=== PATIENT | male | born 2000 | race Caucasian/White ===

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

== ENCOUNTER 2023-05-10 13:42 | Emergency (ER) | payer SELFPAY ==
[~2023-05-10] VITALS: Ht 180.3 cm; Wt 74.7 kg
[2023-05-10 13:42] VITALS: TEMP 98.3
[~2023-05-10 13:42] MED LIST: APAP500T10 PO; AUGM875T28 PO
[2023-05-10] MEDS ORDERED: IBUPROFEN 600MG TAB PO ONE (16:30)
[2023-05-10] MEDS ORDERED: AMOXICILLIN 500 MG CAP PO ONE (16:30)
[2023-05-10] MEDS ORDERED: AMOX500C PO (16:33)
[2023-05-10 16:40] VITALS: BP 125/80; O2SAT 100
== END 2023-05-10 16:45 | disposition home or self-care (01) ==
LOC: M ED 13:42
DX: J02.0 Streptococcal pharyngitis (principal); Z79.2 Long term (current) use of antibiotics; Z79.899 Other long term (current) drug therapy